=== PATIENT | female | born 1990 | race Caucasian/White ===

== ENCOUNTER 2017-04-29 23:15 | Emergency (ER) | payer OTHER ==
[~2017-04-29] VITALS: Ht 167.6 cm; Wt 82.2 kg
[2017-04-29 23:24] VITALS: BP 128/85
[2017-04-30] MEDS ORDERED: KETOROLAC 30 MG/1 ML ONE (00:21)
[2017-04-30] MEDS ORDERED: KETOROLAC 30 MG/1 ML IM ONE (00:30)
== END 2017-04-30 00:41 | disposition home or self-care (01) ==
LOC: ED 23:59
DX: M54.6 Pain in thoracic spine (principal)
CPT/HCPCS: 72072; 96372; 99284; J1885